=== PATIENT | female | born 1955 | race Caucasian/White ===

== ENCOUNTER 2022-09-26 15:28 | Inpatient (IN) | payer MEDICARE ==
[~2022-09-26] VITALS: Ht 157.5 cm; Wt 65.5 kg
[~2022-09-26 15:28] MED LIST: HYDR-4383 PO
[2022-09-26 16:44] LABS: BASOPHILS # (AUTO) 0.1 X10'3 (0-0.2); BASOPHILS % (AUTO) 0.5 % (0-1); EOSINOPHILS % (AUTO) 0.3 % (0-6); HEMATOCRIT 45.8 % (35.0-45.0); HEMOGLOBIN 15.6 g/dl (12.0-16.0); LYMPHOCYTES # (AUTO) 0.4 X10'3 (1.1-4.8); LYMPHOCYTES % (AUTO) 3.3 % (21-51); MEAN CORPUSCULAR HEMOGLOBIN 31.6 PG (27.0-31.0); MEAN CORPUSCULAR VOLUME 92.9 FL (78-98); MEAN PLATELET VOLUME 8.3 FL (7.4-10.4); MONOCYTES # (AUTO) 0.2 X10'3 (0-0.9); MONOCYTES % (AUTO) 1.3 % (2-12); NEUTROPHILS # (AUTO) 11.3 X10'3 (1.8-7.7); NEUTROPHILS % (AUTO) 94.6 % (42-75); PLATELET COUNT 206 X10'3 (140-440); RED BLOOD COUNT 4.93 X10'6 (4.20-5.60); RED CELL DISTRIBUTION WIDTH 12.4 % (11.5-14.5)
[2022-09-26 17:01] LABS: ALANINE AMINOTRANSFERASE 26 U/L (12-78); ALBUMIN 3.9 G/DL (3.4-5.0); ALBUMIN/GLOBULIN RATIO 1.1 (1.1-1.5); ALKALINE PHOSPHATASE 84 IU/L (46-116); ANION GAP 13 (8-16); ASPARTATE AMINO TRANSFERASE 15 U/L (10-37); BILIRUBIN,TOTAL 1.2 MG/DL (0.1-1.0); BLOOD UREA NITROGEN 19 MG/DL (7-18); BUN/CREATININE RATIO 23.8 (10.0-20.0); CALCIUM 9.7 MG/DL (8.5-10.1); CHLORIDE 98 MMOL/L (99-107); GLUCOSE 138 MG/DL (70-104); LIPASE < 50 U/L (73-393); POTASSIUM 3.7 MMOL/L (3.5-5.1); SODIUM 135 MMOL/L (135-145); TOTAL CARBON DIOXIDE 24.2 MMOL/L (24-32); TOTAL PROTEIN 7.6 G/DL (6.4-8.2); eGFR 72 ML/MIN
[2022-09-26] MEDS ORDERED: ondansetron/PF 4mg/2ml inj IV ONE (17:55)
[2022-09-26] MEDS ORDERED: morphine 4 MG/ML inj SYRINge IV ONE (17:55)
[2022-09-26 18:26] LABS: CLARITY,URINE CLEAR (Clear); COLOR,URINE YELLOW (Yellow); GLUCOSE, URINE NEGATIVE (Neg); KETONES,URINE TRACE mg/dl (Neg); LEUKOCYTE ESTERASE ,URINE NEGATIVE (Neg); NITRITES, URINE NEGATIVE (Neg); OCCULT BLOOD,URINE NEGATIVE (Neg); PROTEIN,URINE NEGATIVE (Neg); UROBILINOGEN,URINE 0.2 E.U/dL (0.2-1.0)
[2022-09-26 18:34] LABS: UA COLLECTION TYPE CLN CATCH MIDSTREAM
[2022-09-26] MEDS ORDERED: piperacillin/tazo 3.375gm/50ml 50 ML IV ONE (18:40)
[2022-09-26] MEDS ORDERED: magnesium Cl slow-release 64mg tablet PO PRN (19:10)
[2022-09-26] MEDS ORDERED: potassium Cl 20 mEq SR tablet PO PRN ×2 (19:10)
[2022-09-26] MEDS: normal saline 1000ml 1,000 ML IV SCH (19:10)
[2022-09-26] MEDS ORDERED: PERFLUTREN PROTEIN-A MICROSPHR (Optison) 0.22 MG/ML 3ML VIAL IV ONE (19:10)
[2022-09-26] MEDS ORDERED: HYDROcodone/acetaminophen 5mg/325mg tablet PO PRN (19:10)
[2022-09-26] MEDS ORDERED: magnesium 2GM in 50ml NS 50 ML IV PRN (19:10)
[2022-09-26] MEDS ORDERED: acetaminophen 325mg tablet PO PRN (19:10)
[2022-09-26] MEDS ORDERED: magnesium 4gm in 100ml NS 100 ML IV PRN (19:10)
[2022-09-26] MEDS ORDERED: magnesium hydroxide 30ml (MOM) UD suspension PO PRN (19:10)
[2022-09-26] MEDS ORDERED: morphine 2 MG/ML inj. syringe IV PRN (19:10)
[2022-09-26] MEDS ORDERED: potassium Cl 40MEQ/1/2NS 520ml 520 ML IV PRN (19:10)
[2022-09-26] MEDS ORDERED: normal saline 1000ML IV soln IVB ONE (19:35)
--- NOTE | 2022-09-26 19:48 | NUR ---
pt is resting quietly on gurney, 1st liter NS infusing w/o, pt has been admitted to hospital, waiting bed assignment
[2022-09-26] MEDS ORDERED: THY60T PO (19:50)
--- NOTE | 2022-09-26 21:00 | NUR ---
pt c/o lower abd pain radiating to upper abd, asking for pain medication
[2022-09-26] MEDS: ondansetron/PF 4mg/2ml inj IV PRN (21:03)
[2022-09-26] MEDS: morphine 2 MG/ML inj. syringe IV PRN (21:03)
[2022-09-26 22:00] VITALS: BP 117/64
[2022-09-26] MEDS: K and/or MAG REPLACEMENT MC SCH (22:00)
[2022-09-26] MEDS: docusate sod 100mg capsule PO SCH (22:08)
[2022-09-26] MEDS: piperacillin/tazo 3.375gm/50ml 50 ML IV SCH (23:50)
[2022-09-27] VITALS (22 sets, daily range): BP systolic 122–152; BP diastolic 71–96
[2022-09-27] MEDS: morphine 2 MG/ML inj. syringe IV PRN (01:13)
[2022-09-27] MEDS: ondansetron/PF 4mg/2ml inj IV PRN ×2 (03:11→18:49)
[2022-09-27 03:41] LABS: BASOPHILS % (AUTO) 0.1 % (0-1); EOSINOPHILS % (AUTO) 0 % (0-6); HEMATOCRIT 40.9 % (35.0-45.0); HEMOGLOBIN 13.9 g/dl (12.0-16.0); LYMPHOCYTES # (AUTO) 0.5 X10'3 (1.1-4.8); LYMPHOCYTES % (AUTO) 5.6 % (21-51); MEAN CORPUSCULAR HEMOGLOBIN 31.7 PG (27.0-31.0); MEAN CORPUSCULAR HGB CONC 33.8 g/dL (33.0-36.5); MEAN CORPUSCULAR VOLUME 93.6 FL (78-98); MEAN PLATELET VOLUME 8.5 FL (7.4-10.4); MONOCYTES # (AUTO) 0.4 X10'3 (0-0.9); MONOCYTES % (AUTO) 4.7 % (2-12); NEUTROPHILS # (AUTO) 8.3 X10'3 (1.8-7.7); NEUTROPHILS % (AUTO) 89.6 % (42-75); PLATELET COUNT 188 X10'3 (140-440); RED BLOOD COUNT 4.37 X10'6 (4.20-5.60); RED CELL DISTRIBUTION WIDTH 12.5 % (11.5-14.5); WHITE BLOOD COUNT 9.2 X10'3 (4.5-11.0)
[2022-09-27 03:52] LABS: ALANINE AMINOTRANSFERASE 17 U/L (12-78); ALBUMIN 3.1 G/DL (3.4-5.0); ALKALINE PHOSPHATASE 59 IU/L (46-116); ANION GAP 12 (8-16); ASPARTATE AMINO TRANSFERASE 13 U/L (10-37); BILIRUBIN,TOTAL 1.1 MG/DL (0.1-1.0); BLOOD UREA NITROGEN 16 MG/DL (7-18); BUN/CREATININE RATIO 21.1 (10.0-20.0); CALCIUM 8.6 MG/DL (8.5-10.1); CHLORIDE 104 MMOL/L (99-107); CREATININE 0.76 MG/DL (0.40-0.90); GLUCOSE 123 MG/DL (70-104); MAGNESIUM 1.9 MG/DL (1.5-2.4); SODIUM 140 MMOL/L (135-145); TOTAL CARBON DIOXIDE 24.5 MMOL/L (24-32); TOTAL PROTEIN 6.2 G/DL (6.4-8.2); eGFR 77 ML/MIN
[2022-09-27 04:10] LABS: TOTAL CELLS COUNTED 100
[2022-09-27 04:11] LABS: PLATELET ESTIMATE NORMAL
--- NOTE | 2022-09-27 06:00 | NUR ---
PT LEFT FOR SX.
[2022-09-27] MEDS ORDERED: proCHLORperazine 10 MG/2 ml inj IV PRN (06:05)
[2022-09-27] MEDS ORDERED: ondansetron/PF 4mg/2ml inj IV PRN (06:05)
[2022-09-27] MEDS ORDERED: morphine 4 MG/ML inj SYRINge IV PRN (06:05)
[2022-09-27] MEDS ORDERED: morphine 2 MG/ML inj. syringe IV PRN (06:05)
[2022-09-27] MEDS ORDERED: meperidine/PF 25mg/ml syringe IV PRN ×3 (06:05)
[2022-09-27] MEDS ORDERED: ringers solution, lacted 1,000 ML IV SCH (06:05)
[2022-09-27] MEDS ORDERED: sevoflurane 250ml liquid IH ONE (06:10)
[2022-09-27] MEDS ORDERED: midazolam 1 mg/ML 2ml injection ONE (06:12)
[2022-09-27] MEDS ORDERED: fentaNYL/PF 50MCG/1 ML 2ML syringe ONE (06:12)
--- NOTE | 2022-09-27 06:29 | NUR ---
Problems reprioritized. Patient report given, questions answered & plan of care reviewed with GEE DEVINE.
[2022-09-27] MEDS ORDERED: BUPIVAcaine/PF 2.5 mg/ml (0.25%) 30ml vial ONE (06:37)
[2022-09-27] MEDS ORDERED: ondansetron/PF 4mg/2ml inj ONE (07:00)
[2022-09-27] MEDS ORDERED: dexamethasone sod phosphate 4mg/ml inj. ONE (07:00)
[2022-09-27] MEDS ORDERED: sugammadex 200mg/2ml injection IV ONE (07:00)
[2022-09-27] MEDS ORDERED: LIDOcaine 2% (20mg/ml) 5ml vial ONE (07:00)
[2022-09-27] MEDS ORDERED: rocuronium 10mg/ml inj IV ONE (07:00)
[2022-09-27] MEDS ORDERED: propofol inj 20 ML IV ONE (07:00)
[2022-09-27] MEDS ORDERED: meperidine/PF 25mg/ml syringe ONE (07:15)
[2022-09-27] MEDS ORDERED: naloxone 0.4 mg/ml inj IV PRN (07:25)
[2022-09-27] MEDS ORDERED: HYDROmorphone inj. 0.5 MG/0.5 ML DISP.SYRIN IV PRN (07:25)
--- NOTE | 2022-09-27 08:27 | NUR ---
PATIENT TAKEN TO [facility]THO FLOOR ROOM WITH NO BELONGINGS AND HOOKED UP TO ALL MONITORS IN ROOM AND REPORT GIVEN TO MELANY JACOB WHO HAS TAKEN OVER PATIENT CARE. ASSESSED PATIENT ABDOMEN WITH DENTURE FINISHER, DRESSINGS, CDI, SEROSANGUENOUS DRAINAGE PRESENT IN DRE DRAIN. SPOUSE AT BEDSIDE. PATIENT WITH BED LOW, CALL LIGHT IN PLACE AND 2 RAILS UP. PATIENT COMFORTABLE AT THIS TIME. CARE TURNED OVER TO NEGRO. Addendum: 09/27/22 at 0843 by Calvin Johnson RN, RN Amended: Links added.
[2022-09-27] MEDS: normal saline 1000ml 1,000 ML IV SCH ×2 (08:41→09:11)
[2022-09-27] MEDS: K and/or MAG REPLACEMENT MC SCH ×2 (09:00→19:52)
[2022-09-27] MEDS: docusate sod 100mg capsule PO SCH ×2 (09:10→20:56)
[2022-09-27] MEDS: piperacillin/tazo 3.375gm/50ml 50 ML IV SCH ×3 (09:11→23:37)
--- NOTE | 2022-09-27 17:00 | NUR ---
I have reviewed and agree with interventions, assessments, and documentation by Lynette Willett LVN.
--- NOTE | 2022-09-27 18:39 | NUR ---
Patient in room ORTH[facility] 4009. I have received report from MELANY Johnson and had the opportunity to ask questions and assume patient care.
[2022-09-27] MEDS: thyroid, pork 30mg tablet PO SCH (20:00)
--- NOTE | 2022-09-27 20:30 | NUR ---
I agree with physical assessment done by Farhana Baker.
[2022-09-27] MEDS: heparin, porcine 5000 units/ml vial SQ SCH (20:55)
[2022-09-27] MEDS: HYDROcodone/acetaminophen 5mg/325mg tablet PO PRN (20:55)
[2022-09-28] MEDS: ondansetron/PF 4mg/2ml inj IV PRN ×3 (00:35→14:20)
[2022-09-28] MEDS: normal saline 1000ml 1,000 ML IV SCH ×3 (01:10→19:36)
[2022-09-28 01:39] VITALS: BP 125/74
[2022-09-28 06:18] LABS: BASOPHILS % (AUTO) 0.1 % (0-1); EOSINOPHILS % (AUTO) 0 % (0-6); HEMATOCRIT 38.5 % (35.0-45.0); LYMPHOCYTES # (AUTO) 0.6 X10'3 (1.1-4.8); LYMPHOCYTES % (AUTO) 8.1 % (21-51); MEAN CORPUSCULAR HEMOGLOBIN 31.8 PG (27.0-31.0); MEAN CORPUSCULAR HGB CONC 33.7 g/dL (33.0-36.5); MEAN CORPUSCULAR VOLUME 94.3 FL (78-98); MEAN PLATELET VOLUME 8.9 FL (7.4-10.4); MONOCYTES # (AUTO) 0.4 X10'3 (0-0.9); MONOCYTES % (AUTO) 5.2 % (2-12); NEUTROPHILS # (AUTO) 6.6 X10'3 (1.8-7.7); NEUTROPHILS % (AUTO) 86.6 % (42-75); PLATELET COUNT 172 X10'3 (140-440); RED BLOOD COUNT 4.08 X10'6 (4.20-5.60); RED CELL DISTRIBUTION WIDTH 12.4 % (11.5-14.5); WHITE BLOOD COUNT 7.6 X10'3 (4.5-11.0)
[2022-09-28 06:30] LABS: ALANINE AMINOTRANSFERASE 16 U/L (12-78); ALBUMIN 2.5 G/DL (3.4-5.0); ALBUMIN/GLOBULIN RATIO 0.7 (1.1-1.5); ALKALINE PHOSPHATASE 51 IU/L (46-116); ANION GAP 10 (8-16); ASPARTATE AMINO TRANSFERASE 12 U/L (10-37); BILIRUBIN,TOTAL 0.6 MG/DL (0.1-1.0); BLOOD UREA NITROGEN 15 MG/DL (7-18); BUN/CREATININE RATIO 22.4 (10.0-20.0); CALCIUM 8.8 MG/DL (8.5-10.1); CHLORIDE 102 MMOL/L (99-107); CREATININE 0.67 MG/DL (0.40-0.90); GLUCOSE 104 MG/DL (70-104); MAGNESIUM 1.9 MG/DL (1.5-2.4); POTASSIUM 3.6 MMOL/L (3.5-5.1); SODIUM 138 MMOL/L (135-145); TOTAL CARBON DIOXIDE 25.8 MMOL/L (24-32); eGFR 89 ML/MIN
--- NOTE | 2022-09-28 06:39 | NUR ---
Problems reprioritized. Patient report given, questions answered & plan of care reviewed with GEE Garcia.
[2022-09-28 06:48] VITALS: BP 136/81
[2022-09-28] MEDS: K and/or MAG REPLACEMENT MC SCH ×2 (08:00→19:44)
[2022-09-28] MEDS: piperacillin/tazo 3.375gm/50ml 50 ML IV SCH ×3 (08:15→23:43)
[2022-09-28] MEDS: heparin, porcine 5000 units/ml vial SQ SCH ×2 (08:16→20:26)
[2022-09-28] MEDS: docusate sod 100mg capsule PO SCH ×2 (08:16→20:26)
[2022-09-28 09:53] VITALS: BP 136/79
[2022-09-28] MEDS: HYDROcodone/acetaminophen 5mg/325mg tablet PO PRN (11:45)
[2022-09-28 14:00] VITALS: BP 144/81
[2022-09-28 18:00] VITALS: BP 149/91
--- NOTE | 2022-09-28 19:10 | NUR ---
Patient in room ORTH[facility] 4009. I have received report from Radha FLYNN and had the opportunity to ask questions and assume patient care.
[2022-09-28] MEDS: thyroid, pork 30mg tablet PO SCH (20:27)
[2022-09-28 22:00] VITALS: BP 163/67
[2022-09-29] MEDS: metoclopramide 5 mg/ml inj IV PRN ×2 (02:50→19:11)
[2022-09-29] MEDS: normal saline 1000ml 1,000 ML IV SCH ×3 (05:01→23:59)
[2022-09-29 06:00] VITALS: BP 149/77
[2022-09-29 06:20] LABS: BASOPHILS % (AUTO) 0.1 % (0-1); EOSINOPHILS % (AUTO) 0 % (0-6); HEMOGLOBIN 13.7 g/dl (12.0-16.0); LYMPHOCYTES # (AUTO) 0.5 X10'3 (1.1-4.8); LYMPHOCYTES % (AUTO) 5.1 % (21-51); MEAN CORPUSCULAR HEMOGLOBIN 31.8 PG (27.0-31.0); MEAN CORPUSCULAR HGB CONC 33.4 g/dL (33.0-36.5); MONOCYTES # (AUTO) 0.5 X10'3 (0-0.9); MONOCYTES % (AUTO) 5.7 % (2-12); NEUTROPHILS # (AUTO) 8.6 X10'3 (1.8-7.7); NEUTROPHILS % (AUTO) 89.1 % (42-75); PLATELET COUNT 219 X10'3 (140-440); RED BLOOD COUNT 4.32 X10'6 (4.20-5.60); RED CELL DISTRIBUTION WIDTH 12.6 % (11.5-14.5); WHITE BLOOD COUNT 9.6 X10'3 (4.5-11.0)
[2022-09-29 06:40] LABS: ALANINE AMINOTRANSFERASE 18 U/L (12-78); ALBUMIN 2.4 G/DL (3.4-5.0); ALBUMIN/GLOBULIN RATIO 0.6 (1.1-1.5); ALKALINE PHOSPHATASE 63 IU/L (46-116); ANION GAP 9 (8-16); ASPARTATE AMINO TRANSFERASE 12 U/L (10-37); BILIRUBIN,TOTAL 0.5 MG/DL (0.1-1.0); BLOOD UREA NITROGEN 16 MG/DL (7-18); BUN/CREATININE RATIO 19.8 (10.0-20.0); CALCIUM 8.8 MG/DL (8.5-10.1); CHLORIDE 101 MMOL/L (99-107); CREATININE 0.81 MG/DL (0.40-0.90); GLUCOSE 107 MG/DL (70-104); MAGNESIUM 1.9 MG/DL (1.5-2.4); POTASSIUM 3.5 MMOL/L (3.5-5.1); SODIUM 136 MMOL/L (135-145); TOTAL CARBON DIOXIDE 26.5 MMOL/L (24-32); TOTAL PROTEIN 6.2 G/DL (6.4-8.2); eGFR 71 ML/MIN
--- NOTE | 2022-09-29 06:44 | NUR ---
Patient in room ORTH[facility] 4009. I have received report from Maile and had the opportunity to ask questions and assume patient care.
[2022-09-29] MEDS: K and/or MAG REPLACEMENT MC SCH ×2 (07:34→18:54)
[2022-09-29] MEDS: piperacillin/tazo 3.375gm/50ml 50 ML IV SCH ×3 (08:26→23:59)
[2022-09-29] MEDS: docusate sod 100mg capsule PO SCH ×2 (08:26→20:36)
[2022-09-29] MEDS: heparin, porcine 5000 units/ml vial SQ SCH (08:27)
[2022-09-29 10:00] VITALS: BP 134/71
[2022-09-29 18:00] VITALS: BP 163/67
--- NOTE | 2022-09-29 18:00 | NUR ---
Patient in room [facility]TH[facility] 4009. I have received report from Gayathri FLYNN and had the opportunity to ask questions and assume patient care.
--- NOTE | 2022-09-29 18:37 | NUR ---
Problems reprioritized. Patient report given, questions answered & plan of care reviewed with
[2022-09-29] MEDS: HYDROcodone/acetaminophen 5mg/325mg tablet PO PRN (19:11)
[2022-09-29] MEDS: thyroid, pork 30mg tablet PO SCH (20:36)
[2022-09-29] MEDS: enoxaparin 40mg/0.4ml syringe SUBCUT SCH (20:36)
[2022-09-29 22:00] VITALS: BP 135/73
[2022-09-30] MEDS: metoclopramide 5 mg/ml inj IV PRN ×2 (02:14→08:41)
[2022-09-30 05:00] VITALS: BP 175/75
[2022-09-30 06:39] LABS: BASOPHILS % (AUTO) 0.2 % (0-1); EOSINOPHILS % (AUTO) 0 % (0-6); HEMATOCRIT 36.5 % (35.0-45.0); HEMOGLOBIN 12.4 g/dl (12.0-16.0); LYMPHOCYTES # (AUTO) 0.8 X10'3 (1.1-4.8); LYMPHOCYTES % (AUTO) 7.1 % (21-51); MEAN CORPUSCULAR HEMOGLOBIN 31.9 PG (27.0-31.0); MEAN CORPUSCULAR VOLUME 93.9 FL (78-98); MEAN PLATELET VOLUME 8.7 FL (7.4-10.4); MONOCYTES # (AUTO) 0.8 X10'3 (0-0.9); MONOCYTES % (AUTO) 7.8 % (2-12); NEUTROPHILS # (AUTO) 9.2 X10'3 (1.8-7.7); NEUTROPHILS % (AUTO) 84.9 % (42-75); PLATELET COUNT 234 X10'3 (140-440); RED BLOOD COUNT 3.88 X10'6 (4.20-5.60); RED CELL DISTRIBUTION WIDTH 12.7 % (11.5-14.5); WHITE BLOOD COUNT 10.9 X10'3 (4.5-11.0)
--- NOTE | 2022-09-30 06:43 | NUR ---
Patient in room ORTH[facility] 4009. I have received report from Maile and had the opportunity to ask questions and assume patient care.
[2022-09-30 06:57] LABS: ALANINE AMINOTRANSFERASE 23 U/L (12-78); ALBUMIN 2.1 G/DL (3.4-5.0); ALBUMIN/GLOBULIN RATIO 0.6 (1.1-1.5); ALKALINE PHOSPHATASE 55 IU/L (46-116); ANION GAP 10 (8-16); ASPARTATE AMINO TRANSFERASE 19 U/L (10-37); BILIRUBIN,TOTAL 0.6 MG/DL (0.1-1.0); BLOOD UREA NITROGEN 13 MG/DL (7-18); BUN/CREATININE RATIO 23.2 (10.0-20.0); CALCIUM 8.5 MG/DL (8.5-10.1); CHLORIDE 100 MMOL/L (99-107); CREATININE 0.56 MG/DL (0.40-0.90); GLUCOSE 98 MG/DL (70-104); MAGNESIUM 1.9 MG/DL (1.5-2.4); POTASSIUM 3.3 MMOL/L (3.5-5.1); SODIUM 136 MMOL/L (135-145); TOTAL CARBON DIOXIDE 26.2 MMOL/L (24-32); TOTAL PROTEIN 5.4 G/DL (6.4-8.2); eGFR > 90 ML/MIN
[2022-09-30] MEDS: K and/or MAG REPLACEMENT MC SCH ×2 (07:44→20:00)
[2022-09-30] MEDS: piperacillin/tazo 3.375gm/50ml 50 ML IV SCH ×2 (07:54→16:02)
[2022-09-30] MEDS: docusate sod 100mg capsule PO SCH ×2 (07:54→20:42)
[2022-09-30 10:00] VITALS: BP 140/77
[2022-09-30] MEDS: normal saline 1000ml 1,000 ML IV SCH (13:26)
[2022-09-30 18:00] VITALS: BP 133/82
--- NOTE | 2022-09-30 18:35 | NUR ---
Patient in room [facility]TH[facility] 4009. I have received report from VANIA FLYNN and had the opportunity to ask questions and assume patient care.
[2022-09-30] MEDS: enoxaparin 40mg/0.4ml syringe SUBCUT SCH (20:43)
[2022-09-30] MEDS: thyroid, pork 30mg tablet PO SCH (20:43)
[2022-09-30 22:00] VITALS: BP 152/82
[2022-10-01] MEDS: piperacillin/tazo 3.375gm/50ml 50 ML IV SCH ×3 (00:02→15:47)
[2022-10-01] MEDS: normal saline 1000ml 1,000 ML IV SCH ×3 (00:03→19:10)
[2022-10-01 04:25] LABS: BASOPHILS % (AUTO) 0.1 % (0-1); EOSINOPHILS # (AUTO) 0.1 X10'3 (0-0.9); EOSINOPHILS % (AUTO) 0.5 % (0-6); HEMATOCRIT 35.9 % (35.0-45.0); HEMOGLOBIN 12.2 g/dl (12.0-16.0); LYMPHOCYTES # (AUTO) 1.2 X10'3 (1.1-4.8); LYMPHOCYTES % (AUTO) 9.3 % (21-51); MEAN CORPUSCULAR HEMOGLOBIN 31.5 PG (27.0-31.0); MEAN CORPUSCULAR VOLUME 92.7 FL (78-98); MEAN PLATELET VOLUME 8.5 FL (7.4-10.4); MONOCYTES # (AUTO) 1.3 X10'3 (0-0.9); MONOCYTES % (AUTO) 10.2 % (2-12); NEUTROPHILS # (AUTO) 9.9 X10'3 (1.8-7.7); NEUTROPHILS % (AUTO) 79.9 % (42-75); PLATELET COUNT 250 X10'3 (140-440); RED BLOOD COUNT 3.87 X10'6 (4.20-5.60); RED CELL DISTRIBUTION WIDTH 12.3 % (11.5-14.5); WHITE BLOOD COUNT 12.4 X10'3 (4.5-11.0)
[2022-10-01 04:38] LABS: ALANINE AMINOTRANSFERASE 40 U/L (12-78); ALBUMIN 2.1 G/DL (3.4-5.0); ALBUMIN/GLOBULIN RATIO 0.7 (1.1-1.5); ALKALINE PHOSPHATASE 59 IU/L (46-116); ANION GAP 11 (8-16); ASPARTATE AMINO TRANSFERASE 31 U/L (10-37); BILIRUBIN,TOTAL 0.6 MG/DL (0.1-1.0); BLOOD UREA NITROGEN 8 MG/DL (7-18); BUN/CREATININE RATIO 13.8 (10.0-20.0); CALCIUM 8.5 MG/DL (8.5-10.1); CHLORIDE 101 MMOL/L (99-107); CREATININE 0.58 MG/DL (0.40-0.90); GLUCOSE 100 MG/DL (70-104); POTASSIUM 3.2 MMOL/L (3.5-5.1); SODIUM 138 MMOL/L (135-145); TOTAL CARBON DIOXIDE 25.9 MMOL/L (24-32); TOTAL PROTEIN 5.3 G/DL (6.4-8.2); eGFR > 90 ML/MIN
[2022-10-01 06:00] VITALS: BP 158/79
--- NOTE | 2022-10-01 06:30 | NUR ---
Patient in room [facility]TH[facility] 4009. I have received report from Roberta FLYNN and had the opportunity to ask questions and assume patient care.
--- NOTE | 2022-10-01 06:34 | NUR ---
Problems reprioritized. Patient report given, questions answered & plan of care reviewed with ADÁN MOSLEY.
[2022-10-01] MEDS ORDERED: potassium Cl 40MEQ/1/2NS 520ml 520 ML IV PRN (07:30)
[2022-10-01] MEDS: K and/or MAG REPLACEMENT MC SCH ×2 (07:30→21:35)
[2022-10-01] MEDS: mag hydrox/Alum hydrox/simeth 30ml oral suspension PO PRN ×2 (07:35→11:32)
[2022-10-01] MEDS: potassium Cl 20 mEq SR tablet PO PRN ×2 (07:36→17:16)
[2022-10-01] MEDS: docusate sod 100mg capsule PO SCH ×2 (08:00→19:51)
[2022-10-01] MEDS ORDERED: LORazepam 0.5 MG tablet PO PRN (08:55)
[2022-10-01 10:00] VITALS: BP 103/68
--- NOTE | 2022-10-01 10:36 | NUR ---
Initial: Pt admit DX acute appendicitis, gangrenous s/p OR for laparoscopic appendectomy 09/27 per EMR. Pt PO ~25-50% initial clear and full liquid diets past 4 days post-op most recently ~47% avg past 1.5 days full liquids per EMR. Not meeting needs given restrictive diet though advanced to regular diet WL today per EMR. Pt possibly to leave tomorrow per MD note yesterday; smoothie WB and shakes BIDLD added to assist meeting needs; dietary notified. LBM 09/30 receiving routine colace, PRN reglan 09/30, and PRN MoM 09/29 per EMR. Will monitor for further PO trends following diet advancement and nutrition intervention needs this admit. Rec: 1. continue regular diet; encourage PO 2. smoothie WB, shakes BIDLD to assist meeting needs 3. monitor PO trends for ONS needs; if full liquids PO trends persist on regular diet will meet 100% protein and ~94% kcal needs 4. routine bowel care 5. scaled wt this admit; subsequent weekly wt Addendum: 10/01/22 at [address] Amended: Links added.
--- NOTE | 2022-10-01 16:34 | NUR ---
Patient seen by surgeon . WBC elevated ordered ct with contrast for am patient needs to be NPO after midnight. Patient up adlib walking and tolerating a regualr diet. has pain in lower abd and redness in lap sites. denies any pain medications. 3 loose stool. Vitals have remained stable. Will report to night nurse. All safety measures in place and call light in reach. will continue to monitor.
[2022-10-01 18:00] VITALS: BP 152/82
--- NOTE | 2022-10-01 18:20 | NUR ---
Patient in room [facility]TH[facility] 4009. I have received report from Adelina MOSLEY and had the opportunity to ask questions and assume patient care.
[2022-10-01] MEDS: enoxaparin 40mg/0.4ml syringe SUBCUT SCH (19:54)
--- NOTE | 2022-10-01 21:25 | NUR ---
Patient c/o swollen labia lips and feels like her thighs are swollen. IVF rated turned down to 50mls/hr. Will continue to monitor.
[2022-10-01] MEDS: thyroid, pork 30mg tablet PO SCH (21:33)
[2022-10-01] MEDS: diatr meglu/diatrizoate 30ml oral sol.-(3 dose) bottle PO SCH (21:36)
[2022-10-01 22:00] VITALS: BP 147/81
[2022-10-02] MEDS: piperacillin/tazo 3.375gm/50ml 50 ML IV SCH ×4 (00:57→23:19)
[2022-10-02 06:00] VITALS: BP 153/84
--- NOTE | 2022-10-02 06:40 | NUR ---
Problems reprioritized. Patient report given, questions answered & plan of care reviewed with Nancy FLYNN.
[2022-10-02 06:44] LABS: BASOPHILS % (AUTO) 0.2 % (0-1); EOSINOPHILS # (AUTO) 0.1 X10'3 (0-0.9); EOSINOPHILS % (AUTO) 0.7 % (0-6); HEMATOCRIT 36.5 % (35.0-45.0); HEMOGLOBIN 12.3 g/dl (12.0-16.0); LYMPHOCYTES # (AUTO) 1.2 X10'3 (1.1-4.8); LYMPHOCYTES % (AUTO) 9.3 % (21-51); MEAN CORPUSCULAR HEMOGLOBIN 31.3 PG (27.0-31.0); MEAN CORPUSCULAR HGB CONC 33.8 g/dL (33.0-36.5); MEAN CORPUSCULAR VOLUME 92.6 FL (78-98); MEAN PLATELET VOLUME 7.5 FL (7.4-10.4); MONOCYTES # (AUTO) 1.4 X10'3 (0-0.9); MONOCYTES % (AUTO) 11.1 % (2-12); NEUTROPHILS % (AUTO) 78.7 % (42-75); PLATELET COUNT 291 X10'3 (140-440); RED BLOOD COUNT 3.94 X10'6 (4.20-5.60); RED CELL DISTRIBUTION WIDTH 12.4 % (11.5-14.5); WHITE BLOOD COUNT 12.8 X10'3 (4.5-11.0)
[2022-10-02 07:02] LABS: ALANINE AMINOTRANSFERASE 147 U/L (12-78); ALBUMIN/GLOBULIN RATIO 0.6 (1.1-1.5); ALKALINE PHOSPHATASE 70 IU/L (46-116); ANION GAP 7 (8-16); ASPARTATE AMINO TRANSFERASE 109 U/L (10-37); BILIRUBIN,TOTAL 0.6 MG/DL (0.1-1.0); BLOOD UREA NITROGEN 9 MG/DL (7-18); BUN/CREATININE RATIO 14.5 (10.0-20.0); CALCIUM 8.2 MG/DL (8.5-10.1); CHLORIDE 102 MMOL/L (99-107); CREATININE 0.62 MG/DL (0.40-0.90); GLUCOSE 98 MG/DL (70-104); POTASSIUM 3.7 MMOL/L (3.5-5.1); SODIUM 135 MMOL/L (135-145); TOTAL CARBON DIOXIDE 26.1 MMOL/L (24-32); TOTAL PROTEIN 5.3 G/DL (6.4-8.2); eGFR > 90 ML/MIN
[2022-10-02] MEDS: diatr meglu/diatrizoate 30ml oral sol.-(3 dose) bottle PO SCH ×2 (07:38→10:50)
[2022-10-02] MEDS: docusate sod 100mg capsule PO SCH ×2 (07:40→20:00)
[2022-10-02] MEDS: K and/or MAG REPLACEMENT MC SCH ×2 (08:00→20:00)
[2022-10-02] MEDS ORDERED: iohexol 300mg/ml 100ml inj. ONE (08:35)
[2022-10-02 10:00] VITALS: BP 139/71
--- NOTE | 2022-10-02 10:58 | NUR ---
To CT via wc
[2022-10-02] MEDS: normal saline 1000ml 1,000 ML IV SCH (12:54)
[2022-10-02 18:00] VITALS: BP 159/84
--- NOTE | 2022-10-02 18:15 | NUR ---
Patient in room [facility]TH[facility] 4009. I have received report from Nancy FLYNN and had the opportunity to ask questions and assume patient care.
[2022-10-02] MEDS: HYDROcodone/acetaminophen 5mg/325mg tablet PO PRN ×2 (18:42→23:15)
[2022-10-02] MEDS: enoxaparin 40mg/0.4ml syringe SUBCUT SCH (20:39)
[2022-10-02] MEDS: thyroid, pork 30mg tablet PO SCH (20:40)
[2022-10-02 22:00] VITALS: BP 127/70
[2022-10-03] MEDS: HYDROcodone/acetaminophen 5mg/325mg tablet PO PRN ×4 (03:11→23:00)
[2022-10-03 06:00] VITALS: BP 125/74
[2022-10-03] MEDS: piperacillin/tazo 3.375gm/50ml 50 ML IV SCH ×3 (07:33→23:35)
[2022-10-03] MEDS: K and/or MAG REPLACEMENT MC SCH ×2 (08:00→20:00)
[2022-10-03] MEDS: docusate sod 100mg capsule PO SCH ×2 (08:00→20:00)
[2022-10-03] MEDS: normal saline 1000ml 1,000 ML IV SCH (08:54)
[2022-10-03 10:00] VITALS: BP 126/75
[2022-10-03 17:57] LABS: BASOPHILS % (AUTO) 0.2 % (0-1); EOSINOPHILS # (AUTO) 0.1 X10'3 (0-0.9); HEMATOCRIT 36.1 % (35.0-45.0); HEMOGLOBIN 12.2 g/dl (12.0-16.0); LYMPHOCYTES # (AUTO) 1.1 X10'3 (1.1-4.8); LYMPHOCYTES % (AUTO) 10.1 % (21-51); MEAN CORPUSCULAR HEMOGLOBIN 31.5 PG (27.0-31.0); MEAN CORPUSCULAR HGB CONC 33.9 g/dL (33.0-36.5); MEAN CORPUSCULAR VOLUME 93.1 FL (78-98); MEAN PLATELET VOLUME 7.5 FL (7.4-10.4); MONOCYTES # (AUTO) 0.9 X10'3 (0-0.9); MONOCYTES % (AUTO) 8.3 % (2-12); NEUTROPHILS # (AUTO) 8.8 X10'3 (1.8-7.7); NEUTROPHILS % (AUTO) 80.4 % (42-75); PLATELET COUNT 323 X10'3 (140-440); RED BLOOD COUNT 3.87 X10'6 (4.20-5.60); RED CELL DISTRIBUTION WIDTH 12.4 % (11.5-14.5); WHITE BLOOD COUNT 10.9 X10'3 (4.5-11.0)
[2022-10-03 18:00] VITALS: BP 143/86
[2022-10-03 18:21] LABS: ALANINE AMINOTRANSFERASE 191 U/L (12-78); ALBUMIN/GLOBULIN RATIO 0.6 (1.1-1.5); ALKALINE PHOSPHATASE 68 IU/L (46-116); ANION GAP 7 (8-16); ASPARTATE AMINO TRANSFERASE 89 U/L (10-37); BILIRUBIN,TOTAL 0.4 MG/DL (0.1-1.0); BLOOD UREA NITROGEN 11 MG/DL (7-18); BUN/CREATININE RATIO 15.1 (10.0-20.0); CALCIUM 8.1 MG/DL (8.5-10.1); CHLORIDE 101 MMOL/L (99-107); CREATININE 0.73 MG/DL (0.40-0.90); GLUCOSE 98 MG/DL (70-104); POTASSIUM 3.5 MMOL/L (3.5-5.1); SODIUM 136 MMOL/L (135-145); TOTAL CARBON DIOXIDE 28.5 MMOL/L (24-32); TOTAL PROTEIN 5.4 G/DL (6.4-8.2); eGFR 80 ML/MIN
[2022-10-03 18:26] LABS: PLATELET ESTIMATE NORMAL; TOTAL CELLS COUNTED 100
--- NOTE | 2022-10-03 19:00 | NUR ---
Patient in room [facility]TH[facility] 4009. I have received report from Nancy FLYNN and had the opportunity to ask questions and assume patient care.
[2022-10-03 22:00] VITALS: BP 142/78
[2022-10-03] MEDS: thyroid, pork 30mg tablet PO SCH (22:59)
[2022-10-03] MEDS: enoxaparin 40mg/0.4ml syringe SUBCUT SCH (22:59)
[2022-10-04] MEDS: HYDROcodone/acetaminophen 5mg/325mg tablet PO PRN ×5 (03:01→22:11)
[2022-10-04] MEDS: normal saline 1000ml 1,000 ML IV SCH (04:54)
[2022-10-04 06:00] VITALS: BP_SYST 127; BP_SYST 137; BP_DIAS 67; BP_DIAS 74
--- NOTE | 2022-10-04 06:08 | NUR ---
Problems reprioritized. Patient report given, questions answered & plan of care reviewed with Nancy FLYNN.
[2022-10-04 06:37] LABS: BASOPHILS % (AUTO) 0.5 % (0-1); EOSINOPHILS # (AUTO) 0.1 X10'3 (0-0.9); EOSINOPHILS % (AUTO) 1.2 % (0-6); HEMATOCRIT 34.4 % (35.0-45.0); HEMOGLOBIN 11.8 g/dl (12.0-16.0); LYMPHOCYTES # (AUTO) 1.1 X10'3 (1.1-4.8); LYMPHOCYTES % (AUTO) 10.8 % (21-51); MEAN CORPUSCULAR HGB CONC 34.1 g/dL (33.0-36.5); MEAN CORPUSCULAR VOLUME 93.6 FL (78-98); MEAN PLATELET VOLUME 7.8 FL (7.4-10.4); MONOCYTES # (AUTO) 0.8 X10'3 (0-0.9); MONOCYTES % (AUTO) 7.9 % (2-12); NEUTROPHILS # (AUTO) 8.1 X10'3 (1.8-7.7); NEUTROPHILS % (AUTO) 79.6 % (42-75); PLATELET COUNT 318 X10'3 (140-440); RED BLOOD COUNT 3.68 X10'6 (4.20-5.60); RED CELL DISTRIBUTION WIDTH 12.5 % (11.5-14.5); WHITE BLOOD COUNT 10.2 X10'3 (4.5-11.0)
[2022-10-04 06:51] LABS: ALANINE AMINOTRANSFERASE 171 U/L (12-78); ALBUMIN 1.9 G/DL (3.4-5.0); ALBUMIN/GLOBULIN RATIO 0.6 (1.1-1.5); ALKALINE PHOSPHATASE 65 IU/L (46-116); ANION GAP 6 (8-16); ASPARTATE AMINO TRANSFERASE 72 U/L (10-37); BILIRUBIN,TOTAL 0.4 MG/DL (0.1-1.0); BLOOD UREA NITROGEN 9 MG/DL (7-18); BUN/CREATININE RATIO 12.5 (10.0-20.0); CALCIUM 8.3 MG/DL (8.5-10.1); CHLORIDE 101 MMOL/L (99-107); CREATININE 0.72 MG/DL (0.40-0.90); GLUCOSE 81 MG/DL (70-104); POTASSIUM 3.4 MMOL/L (3.5-5.1); SODIUM 135 MMOL/L (135-145); TOTAL CARBON DIOXIDE 28.1 MMOL/L (24-32); TOTAL PROTEIN 5.3 G/DL (6.4-8.2); eGFR 82 ML/MIN
[2022-10-04] MEDS: K and/or MAG REPLACEMENT MC SCH ×2 (08:00→20:00)
[2022-10-04] MEDS: docusate sod 100mg capsule PO SCH ×2 (08:00→20:00)
[2022-10-04] MEDS: piperacillin/tazo 3.375gm/50ml 50 ML IV SCH (08:09)
[2022-10-04 10:00] VITALS: BP 130/67
--- NOTE | 2022-10-04 10:45 | NUR ---
F/u 10/04: Pt advanced to regular diet 10/01 WL PO ~48% avg past 6 documented meals receiving smoothies TIDWM; meeting estimated needs w/ PO trends since diet advancement. LBM 10/04 w/ pt mostly refusing routine colace past ~2.5 days w/ PRN bowel care available per EMR. No nutrition interventions at this time. Will continue to monitor. Rec: 1. continue regular diet; encourage PO 2. smoothies TIDWM 3. routine bowel care 4. scaled wt this admit; subsequent weekly wt Addendum: 10/04/22 at [address] Amended: Links added.
[2022-10-04] MEDS: amox tr/potassium clavulanate 500mg/125mg TAB PO SCH (17:57)
[2022-10-04 18:00] VITALS: BP 143/71
--- NOTE | 2022-10-04 18:32 | NUR ---
Patient in room [facility]TH[facility] 4009. I have received report from Gayathri FLYNN and had the opportunity to ask questions and assume patient care. Addendum: 10/04/22 at 1839 by Linda Johnson LVN, LVN Patient in room [facility]TH[facility] 4009. I have received report from Nancy FLYNN and had the opportunity to ask questions and assume patient care
--- NOTE | 2022-10-04 18:39 | NUR ---
Report to Madhavi MOSLEY
[2022-10-04] MEDS: enoxaparin 40mg/0.4ml syringe SUBCUT SCH (19:52)
--- NOTE | 2022-10-04 20:00 | NUR ---
focused assessment. pt walking halls, talking with staff. states belly is moving, flatus. noted reddness around dressings mostly below umbilicus and to the patient's left side. pt states "I looked in the mirror and i think it's getting better." dressings and steri strips CDI. ben serous only drainage.
[2022-10-04] MEDS: thyroid, pork 30mg tablet PO SCH (21:06)
[2022-10-04 22:00] VITALS: BP 125/68
[2022-10-05] MEDS: normal saline 1000ml 1,000 ML IV SCH (00:54)
[2022-10-05] MEDS: HYDROcodone/acetaminophen 5mg/325mg tablet PO PRN ×2 (03:42→08:56)
[2022-10-05 06:06] VITALS: BP 163/86
[2022-10-05 06:23] LABS: ALANINE AMINOTRANSFERASE 159 U/L (12-78); ALBUMIN/GLOBULIN RATIO 0.6 (1.1-1.5); ALKALINE PHOSPHATASE 68 IU/L (46-116); ANION GAP 5 (8-16); ASPARTATE AMINO TRANSFERASE 59 U/L (10-37); BILIRUBIN,TOTAL 0.3 MG/DL (0.1-1.0); BLOOD UREA NITROGEN 7 MG/DL (7-18); BUN/CREATININE RATIO 9.7 (10.0-20.0); CALCIUM 8.3 MG/DL (8.5-10.1); CHLORIDE 101 MMOL/L (99-107); CREATININE 0.72 MG/DL (0.40-0.90); GLUCOSE 91 MG/DL (70-104); POTASSIUM 3.7 MMOL/L (3.5-5.1); SODIUM 135 MMOL/L (135-145); TOTAL CARBON DIOXIDE 28.9 MMOL/L (24-32); TOTAL PROTEIN 5.6 G/DL (6.4-8.2); eGFR 82 ML/MIN
[2022-10-05 06:29] LABS: BASOPHILS % (AUTO) 0.2 % (0-1); EOSINOPHILS # (AUTO) 0.1 X10'3 (0-0.9); EOSINOPHILS % (AUTO) 0.7 % (0-6); HEMATOCRIT 34.7 % (35.0-45.0); HEMOGLOBIN 11.5 g/dl (12.0-16.0); LYMPHOCYTES % (AUTO) 7.8 % (21-51); MEAN CORPUSCULAR HEMOGLOBIN 31.3 PG (27.0-31.0); MEAN CORPUSCULAR HGB CONC 33.3 g/dL (33.0-36.5); MEAN CORPUSCULAR VOLUME 94.1 FL (78-98); MEAN PLATELET VOLUME 7.9 FL (7.4-10.4); MONOCYTES # (AUTO) 0.9 X10'3 (0-0.9); MONOCYTES % (AUTO) 7.3 % (2-12); NEUTROPHILS # (AUTO) 10.3 X10'3 (1.8-7.7); PLATELET COUNT 338 X10'3 (140-440); RED BLOOD COUNT 3.69 X10'6 (4.20-5.60); RED CELL DISTRIBUTION WIDTH 12.4 % (11.5-14.5); WHITE BLOOD COUNT 12.3 X10'3 (4.5-11.0)
[2022-10-05] MEDS ORDERED: AMOX-419 PO (07:32)
[2022-10-05] MEDS: K and/or MAG REPLACEMENT MC SCH (08:00)
[2022-10-05] MEDS: amox tr/potassium clavulanate 500mg/125mg TAB PO SCH (08:55)
[2022-10-05] MEDS: docusate sod 100mg capsule PO SCH (08:55)
[2022-10-05 09:52] VITALS: BP 137/70
== END 2022-10-05 12:20 | disposition home or self-care (01) | DRG 853 ==
LOC: ER 15:28 → ED HOLD 19:13 → ORTHO 4S 22:25
PROVIDERS: ADMIT Internal Medicine; ATTEND Family Medicine
PROC: 0DTJ4ZZ Resection of Appendix, Percutaneous Endoscopic Approach (ICD-10-PCS; principal; 2022-09-27 06:10)
PROC: BW211ZZ Computerized Tomography (CT Scan) of Abdomen and Pelvis using Low Osmolar Contrast (ICD-10-PCS; 2022-10-02)
DX: A41.9 Sepsis, unspecified organism (principal); K35.32 Acute appendicitis with perforation, localized peritonitis, and gangrene, without abscess; E03.9 Hypothyroidism, unspecified; N73.9 Female pelvic inflammatory disease, unspecified; K59.00 Constipation, unspecified; D72.829 Elevated white blood cell count, unspecified; R01.1 Cardiac murmur, unspecified; Z90.710 Acquired absence of both cervix and uterus; Z88.5 Allergy status to narcotic agent; Z79.899 Other long term (current) drug therapy; Z79.890 Hormone replacement therapy
CPT/HCPCS: 36415; 74176; 74177; 80053; 81003; 82948; 83690; 83735; 84132; 84443; 85007; 85025; 85610; 86885; 86900; 86901; 87081; 88304; 93005; 93306; 99285; A4215; A4314; A4615; A4618; A6209; A6258; A6402; A6449; A7000; G0378; J1100; J1644; J1650; J2175; J2250; J2270; J2405; J2543; J2704; J2765; J3010; J3490; J7030; J7040; J7120; Q9963; Q9967

== ENCOUNTER 2022-10-15 04:38 | Emergency (ER) | payer MEDICARE ==
[~2022-10-15] VITALS: Ht 157.5 cm; Wt 62.3 kg
[~2022-10-15 04:38] MED LIST changes: +AMOX-419 PO; -HYDR-4383 PO; +THY60T PO
[2022-10-15 05:30] LABS: CLARITY,URINE TURBID (Clear); COLOR,URINE YELLOW (Yellow); GLUCOSE, URINE NEGATIVE (Neg); KETONES,URINE 15 mg/dl (Neg); LEUKOCYTE ESTERASE ,URINE NEGATIVE (Neg); NITRITES, URINE NEGATIVE (Neg); OCCULT BLOOD,URINE NEGATIVE (Neg); PROTEIN,URINE TRACE mg/dl (Neg); UROBILINOGEN,URINE 0.2 E.U/dL (0.2-1.0)
[2022-10-15] MEDS ORDERED: piperacillin/tazo 3.375gm/50ml 50 ML IV ONE ×2 (05:50→07:20)
[2022-10-15] MEDS ORDERED: normal saline 1000ML IV soln IVB ONE (05:50)
[2022-10-15] MEDS ORDERED: ondansetron/PF 4mg/2ml inj IV ONE (05:50)
[2022-10-15 05:59] LABS: UA COLLECTION TYPE CLN CATCH MIDSTREAM
[2022-10-15] MEDS ORDERED: AMOX1TAB15 PO (05:59)
[2022-10-15 06:05] LABS: RBC,URINE NONE SEEN /HPF (0-2); WBC,URINE 0-4 /HPF (0-4)
--- NOTE | 2022-10-15 06:05 | NUR ---
Urine rejected for culture, per lab.
[2022-10-15 06:06] LABS: BACTERIA,URINE 1+ /HPF (Neg); MUCUS STRANDS MANY /LPF (Neg); SQUAMOUS EPITHELIAL CELL,UR MANY /LPF (FEW); TRANSITIONAL EPI CELLS,URINE FEW /HPF
[2022-10-15 06:07] LABS: CAL OXALATE CRYSTALS 2+ /HPF (NEGATIVE); RENAL CELLS, URINE FEW /HPF
[2022-10-15 06:23] LABS: BASOPHILS # (AUTO) 0.1 X10'3 (0-0.2); EOSINOPHILS # (AUTO) 0.1 X10'3 (0-0.9); HEMATOCRIT 39.7 % (35.0-45.0); HEMOGLOBIN 13.4 g/dl (12.0-16.0); LYMPHOCYTES # (AUTO) 0.6 X10'3 (1.1-4.8); LYMPHOCYTES % (AUTO) 4.8 % (21-51); MEAN CORPUSCULAR HEMOGLOBIN 30.6 PG (27.0-31.0); MEAN CORPUSCULAR HGB CONC 33.8 g/dL (33.0-36.5); MEAN CORPUSCULAR VOLUME 90.6 FL (78-98); MEAN PLATELET VOLUME 7.8 FL (7.4-10.4); MONOCYTES # (AUTO) 0.6 X10'3 (0-0.9); MONOCYTES % (AUTO) 5.3 % (2-12); NEUTROPHILS # (AUTO) 10.3 X10'3 (1.8-7.7); NEUTROPHILS % (AUTO) 87.9 % (42-75); PLATELET COUNT 389 X10'3 (140-440); RED BLOOD COUNT 4.38 X10'6 (4.20-5.60); RED CELL DISTRIBUTION WIDTH 12.8 % (11.5-14.5); WHITE BLOOD COUNT 11.7 X10'3 (4.5-11.0)
[2022-10-15 06:27] LABS: D-DIMER 2.03 MG/L FEU (0-0.50)
[2022-10-15 06:32] LABS: ALANINE AMINOTRANSFERASE 51 U/L (12-78); ALBUMIN/GLOBULIN RATIO 0.7 (1.1-1.5); ALKALINE PHOSPHATASE 85 IU/L (46-116); ANION GAP 13 (8-16); ASPARTATE AMINO TRANSFERASE 25 U/L (10-37); BILIRUBIN,TOTAL 0.5 MG/DL (0.1-1.0); BLOOD UREA NITROGEN 15 MG/DL (7-18); BUN/CREATININE RATIO 21.1 (10.0-20.0); CALCIUM 9.3 MG/DL (8.5-10.1); CHLORIDE 98 MMOL/L (99-107); CREATININE 0.71 MG/DL (0.40-0.90); GLUCOSE 123 MG/DL (70-104); POTASSIUM 3.8 MMOL/L (3.5-5.1); SODIUM 134 MMOL/L (135-145); TOTAL CARBON DIOXIDE 23.2 MMOL/L (24-32); TOTAL PROTEIN 7.5 G/DL (6.4-8.2); eGFR 83 ML/MIN
--- NOTE | 2022-10-15 07:01 | NUR ---
RN CALLED PHARMACY AND REQ BHUMIKAN BE BROUGHT TO ED.
--- NOTE | 2022-10-15 07:16 | NUR ---
[facility]ANA[facility] SHOWING DC ON JUN. RN CALLED PHARM AND THEY STATED ITS ACTIVE ON THEIR END AND THEY WILL ENTER THE ORD AGAIN.
[2022-10-15] MEDS ORDERED: normal saline 1000ml 1,000 ML IV ONE (08:30)
[2022-10-15] MEDS ORDERED: iohexol 350MG/ML 100ml bottle IV ONE (08:32)
[2022-10-15] MEDS ORDERED: metroNIDAZOLE-Flagyl 500mg/NS 100 ML IV ONE (10:00)
[2022-10-15] MEDS ORDERED: MOXI400T32 PO (10:07)
[2022-10-15] MEDS ORDERED: METR-159 PO (10:07)
[2022-10-15] MEDS ORDERED: metroNIDAZOLE 500mg tablet PO ONE (10:15)
[2022-10-15 10:29] VITALS: BP 118/75
== END 2022-10-15 10:32 | disposition home or self-care (01) ==
LOC: ER 04:39
DX: R07.81 Pleurodynia (principal); R10.9 Unspecified abdominal pain; Z90.49 Acquired absence of other specified parts of digestive tract; E03.9 Hypothyroidism, unspecified; Z88.5 Allergy status to narcotic agent; Z79.899 Other long term (current) drug therapy
CPT/HCPCS: 36415; 71045; 71275; 74177; 80053; 81001; 83605; 84145; 84484; 85025; 85379; 87040; 93005; 96361; 96365; 96375; 99285; J2405; J2543; J3490; J7030; Q9967

== ENCOUNTER 2023-05-11 12:12 | Day surgery (SDC) | payer MEDICARE ==
[2023-05-11] VITALS (12 sets, daily range): BP systolic 99–139; BP diastolic 45–81; PULSE 67–99; RESP 12; TEMP 98.2; O2SAT 94–99
[~2023-05-11] VITALS: Ht 157.5 cm; Wt 63.8 kg
[~2023-05-11 12:12] MED LIST changes: -AMOX-419 PO; +AMOX1TAB15 PO; +MOXI400T32 PO
[2023-05-11] MEDS ORDERED: LORazepam 0.5 MG tablet PO PRN (12:35)
[2023-05-11] MEDS ORDERED: normal saline 1,000 ML IV SCH (12:35)
[2023-05-11] MEDS ORDERED: diphenhydrAMINE 25mg capsule PO PRN (12:35)
[2023-05-11] MEDS ORDERED: LIDOcaine 1% (10mg/ml) 2ml vial ONE (12:44)
[2023-05-11] MEDS ORDERED: verapamil 2.5 mg/ml inj IV ONE (12:44)
[2023-05-11] MEDS ORDERED: fentaNYL/PF 50MCG/1 ML 2ML syringe ONE (12:45)
[2023-05-11] MEDS ORDERED: heparin 1,000unit/ml 10ml vial 10 ML ONE (12:45)
[2023-05-11] MEDS ORDERED: nitroGLYCERIN 500mcg/5mL D5W 5 ML IV ONE (12:45)
[2023-05-11] MEDS ORDERED: iohexol 350MG/ML 100ml bottle IV ONE (12:45)
[2023-05-11] MEDS ORDERED: midazolam 1 mg/ML 2ml injection ONE (12:45)
[2023-05-11 12:57] LABS: BASOPHILS % (AUTO) 0.5 % (0-1); EOSINOPHILS # (AUTO) 0.1 X10'3 (0-0.9); EOSINOPHILS % (AUTO) 1.8 % (0-6); HEMATOCRIT 42.3 % (35.0-45.0); HEMOGLOBIN 14.6 g/dl (12.0-16.0); LYMPHOCYTES # (AUTO) 1.7 X10'3 (1.1-4.8); LYMPHOCYTES % (AUTO) 28.8 % (21-51); MEAN CORPUSCULAR HEMOGLOBIN 32.2 PG (27.0-31.0); MEAN CORPUSCULAR HGB CONC 34.4 g/dL (33.0-36.5); MEAN CORPUSCULAR VOLUME 93.5 FL (78-98); MEAN PLATELET VOLUME 8.4 FL (7.4-10.4); MONOCYTES # (AUTO) 0.5 X10'3 (0-0.9); MONOCYTES % (AUTO) 8.4 % (2-12); NEUTROPHILS # (AUTO) 3.5 X10'3 (1.8-7.7); NEUTROPHILS % (AUTO) 60.5 % (42-75); PLATELET COUNT 240 X10'3 (140-440); RED BLOOD COUNT 4.53 X10'6 (4.20-5.60); RED CELL DISTRIBUTION WIDTH 12.1 % (11.5-14.5); WHITE BLOOD COUNT 5.8 X10'3 (4.5-11.0)
[2023-05-11 13:20] LABS: ALBUMIN 4.1 G/DL (3.4-5.0); ANION GAP 10 (8-16); BLOOD UREA NITROGEN 19 MG/DL (7-18); BUN/CREATININE RATIO 30.2 (10.0-20.0); CALCIUM 9.4 MG/DL (8.5-10.1); CHLORIDE 102 MMOL/L (99-107); CREATININE 0.63 MG/DL (0.40-0.90); GLUCOSE 98 MG/DL (70-104); POTASSIUM 3.8 MMOL/L (3.5-5.1); SODIUM 139 MMOL/L (135-145); TOTAL CARBON DIOXIDE 27.2 MMOL/L (24-32); eCRCL 70 ML/MIN; eGFR > 90 ML/MIN
[2023-05-11 14:29] LABS: ISTAT HGB ART 12.6 g/dl (12.0-16.0); ISTAT Hct ART 37 %PCV (35-45); ISTAT O2 SATURATION ARTERIAL 97 % (95-98); ISTAT SOURCE ART
[2023-05-11 14:31] LABS: PROTHROMBIN TIME 10.8 SECONDS (9.0-12.0)
[2023-05-11] MEDS ORDERED: HYDROcodone/acetaminophen 10/325mg tab PO PRN (14:40)
[2023-05-11] MEDS ORDERED: HYDROcodone/acetaminophen 5mg/325mg tablet PO PRN (14:40)
[2023-05-14 07:05] LABS: ISTAT HGB MIX 12.9 g/dl (12.0-16.0); ISTAT Hct MIX 38 %PCV (35-45); ISTAT O2 SATURATION MIX VENOUS 72 % (60-80); ISTAT SOURCE VEN
== END 2023-05-11 17:45 | disposition home or self-care (01) ==
LOC: SSTAY O 12:12
PROVIDERS: ATTEND Student in an Organized Health Care Education/Training Program
DX: I35.0 Nonrheumatic aortic (valve) stenosis (principal); I25.119 Atherosclerotic heart disease of native coronary artery with unspecified angina pectoris; I48.91 Unspecified atrial fibrillation; E03.9 Hypothyroidism, unspecified; I71.40 Abdominal aortic aneurysm, without rupture, unspecified; Z88.5 Allergy status to narcotic agent; Z79.899 Other long term (current) drug therapy
CPT/HCPCS: 36415; 80048; 82803; 85014; 85025; 85610; 93005; 93456; 99152; A6258; J1644; J2250; J3010; J3490; J7030; Q0163; Q9967; 99153; A6402; C1751; C1894

== ENCOUNTER 2023-08-04 06:58 | Emergency (ER) | payer MEDICARE ==
[~2023-08-04] VITALS: Ht 157.5 cm; Wt 64.0 kg
[~2023-08-04 06:58] MED LIST changes: -AMOX1TAB15 PO; +ASPI81TA53 PO; +ATOR10TA PO; +HYDR-3972 PO; +LOP12.5T PO; -MOXI400T32 PO
[2023-08-04 07:20] VITALS: TEMP 98.8
[2023-08-04 08:07] LABS: BASOPHILS % (AUTO) 0.3 % (0-1); EOSINOPHILS # (AUTO) 0.1 X10'3 (0-0.9); EOSINOPHILS % (AUTO) 0.8 % (0-6); HEMOGLOBIN 12.2 g/dl (12.0-16.0); LYMPHOCYTES % (AUTO) 9.8 % (21-51); MEAN CORPUSCULAR VOLUME 84.7 FL (78-98); MEAN PLATELET VOLUME 8.1 FL (7.4-10.4); MONOCYTES # (AUTO) 0.8 X10'3 (0-0.9); MONOCYTES % (AUTO) 7.3 % (2-12); NEUTROPHILS # (AUTO) 8.5 X10'3 (1.8-7.7); NEUTROPHILS % (AUTO) 81.8 % (42-75); PLATELET COUNT 379 X10'3 (140-440); RED BLOOD COUNT 4.37 X10'6 (4.20-5.60); RED CELL DISTRIBUTION WIDTH 14.8 % (11.5-14.5); WHITE BLOOD COUNT 10.4 X10'3 (4.5-11.0)
[2023-08-04 08:13] LABS: ALBUMIN 2.9 G/DL (3.4-5.0); ANION GAP 9 (8-16); BLOOD UREA NITROGEN 11 MG/DL (7-18); BUN/CREATININE RATIO 17.2 (10.0-20.0); CALCIUM 8.8 MG/DL (8.5-10.1); CHLORIDE 103 MMOL/L (99-107); CREATININE 0.64 MG/DL (0.40-0.90); GLUCOSE 132 MG/DL (70-104); POTASSIUM 4.2 MMOL/L (3.5-5.1); PRO BRAIN NATRIURETIC PEPTIDE 588 PG/ML (0-125); SODIUM 137 MMOL/L (135-145); TOTAL CARBON DIOXIDE 24.6 MMOL/L (24-32); eCRCL 69 ML/MIN; eGFR > 90 ML/MIN
[2023-08-04] MEDS ORDERED: iohexol 350MG/ML 100ml bottle IV ONE (08:57)
[2023-08-04] MEDS: normal saline 1000ML IV soln IVB ONE (09:07)
[2023-08-04 11:57] VITALS: BP 136/85; PULSE 106; RESP 20; O2SAT 96
== END 2023-08-04 12:00 | disposition home or self-care (01) ==
LOC: ER 06:58
DX: I31.39 Other pericardial effusion (noninflammatory) (principal); R07.89 Other chest pain; E03.9 Hypothyroidism, unspecified; Z79.899 Other long term (current) drug therapy; Z72.89 Other problems related to lifestyle; Z79.2 Long term (current) use of antibiotics
CPT/HCPCS: 36415; 71045; 71275; 80048; 83880; 84484; 85025; 93005; 93306; 96360; 99285; J3490; J7030; Q9967

== ENCOUNTER 2023-08-10 06:35 | Day surgery (SDC) | payer MEDICARE ==
[~2023-08-10] VITALS: Ht 157.5 cm; Wt 62.7 kg
[2023-08-10 06:54] VITALS: BP 123/93; PULSE 117; RESP 16; TEMP 98.1; O2SAT 98
[2023-08-10] MEDS ORDERED: albumin 25% 100mL bottle x 1 IV PRN (06:55)
[2023-08-10] MEDS ORDERED: ATOR10TA70 PO (07:04)
[2023-08-10] MEDS ORDERED: METO25TA6 PO (07:04)
[2023-08-10] MEDS ORDERED: OMEG-5 PO (07:04)
[2023-08-10] MEDS ORDERED: MULT-1249 PO (07:04)
[2023-08-10] MEDS ORDERED: ACET-2119 PO (07:04)
[2023-08-10] MEDS ORDERED: ASPI81TA52 PO (07:04)
[2023-08-10] MEDS ORDERED: CALC-463 PO (07:04)
[2023-08-10] MEDS ORDERED: CURC500C PO (07:04)
[2023-08-10] MEDS ORDERED: IBUP-1984 PO (07:04)
[2023-08-10 07:15] VITALS: RESP 16; O2SAT 98
[2023-08-10 07:57] VITALS: BP 127/76; PULSE 72; RESP 16; O2SAT 98
[2023-08-10 08:12] VITALS: BP 137/104; PULSE 103; RESP 16; O2SAT 98
[2023-08-10 08:20] VITALS: BP 132/79; PULSE 86; RESP 16; O2SAT 97
== END 2023-08-10 08:43 | disposition home or self-care (01) ==
LOC: SSTAY O 06:35
PROVIDERS: ATTEND Internal Medicine Critical Care Medicine
DX: J90 Pleural effusion, not elsewhere classified (principal); Z79.1 Long term (current) use of non-steroidal anti-inflammatories (NSAID); Z79.82 Long term (current) use of aspirin; Z79.899 Other long term (current) drug therapy; Z90.49 Acquired absence of other specified parts of digestive tract; Z95.4 Presence of other heart-valve replacement; Z81.8 Family history of other mental and behavioral disorders
CPT/HCPCS: 32555; C1729